=== PATIENT | female | born 1945 | race Caucasian/White ===

== ENCOUNTER 2016-11-28 10:28 | Day surgery (SDC) | payer MEDICARE, MEDICAID ==
[2016-11-28] VITALS (7 sets, daily range): BP systolic 98–127; BP diastolic 54–70; PULSE 65–70; RESP 14–18; O2SAT 96–99
[~2016-11-28] VITALS: Ht 165.1 cm; Wt 43.7 kg
[~2016-11-28 10:28] MED LIST: CeFAZolin Inj 2 GM in IV Premix 1 EACH IV ONE; DICL100G8 TOPICAL; Lactated Ringer's 1,000 ML IV SCH; TRAM50TA2 PO; TRAZ150T72 PO; VENL150C98 PO
[2016-11-28] MEDS ORDERED: fentaNYL-PF 50 mCg/mL 2 mL Inj ONE (10:29)
[2016-11-28] MEDS ORDERED: Propofol 10,000 mCg/mL 20 mL Inj ONE (10:29)
[2016-11-28] MEDS ORDERED: Ondansetron 2 mg/mL 2 mL Inj ONE (10:29)
[2016-11-28] MEDS ORDERED: CeFAZolin Inj 2 gm / 50mL D5W IV ONE (10:33)
[2016-11-28] MEDS ORDERED: Lactated Ringer's 1,000 ML IV ONE (11:19)
[2016-11-28] MEDS ORDERED: Lidocaine 2%-Epi 1:100,000 20 mL Inj INFILTRATE ONE (12:24)
[2016-11-28] MEDS ORDERED: Lidocaine MPF 2%-Epi 1:200,000 10 mL Inj INFILTRATE ONE (12:24)
[2016-11-28] MEDS ORDERED: Lactated Ringer's 1,000 ML IV SCH (12:27)
[2016-11-28] MEDS ORDERED: Lactated Ringer's 500 ML IV PRN (12:27)
--- NOTE | 2016-11-28 12:27 | PCM.HPANE ---
Patient Data Surgeon Admitting Provider: Attending Provider:Ca White DPM Primary Care Physician:Other,Physician Other Provider:Ryan Wu Anesthesia Reason for Visit Right Hallux Valgus/Severe Bunion Ht/WT & BMI Height (Feet): 5 Height (Inches): 5.00 Weight (Kilograms): 43.7 Body Mass Index 16.00 Allergies Coded Allergies: Sulfa (Sulfonamide Antibiotics) (Verified Allergy, Unknown, 11/27/16) Past Anesthesia History Anesthesia History: Denies:: Anesthesia Reactions, Fam Anesthesia Reaction Diabetes History Hx Diabetes?: No MRSA MRSA: No Medications Hypertension Medication: No Home Meds Incl Beta Yoly: No Reported Medications Diclofenac Gel (Voltaren Gel)100 Gm Tube1 Applic TOPICAL QID PRN For Pain #1 TUBE 11/27/16 Venlafaxine ER 150 Mg [id number] Mg PO BID Ref 0 11/27/16 Trazodone 150 Mg [id number] Mg PO HS Ref 0 11/27/16 Tramadol 50 Mg [id number] Mg PO Q6H PRN For Pain Ref 0 NTE 6 tabs/24 11/27/16 History History of ENT Problems?: Yes HEENT History: Positive for:: Hearing Problem (unable to use aides) Sinus Problem Denies:: Glaucoma Teeth Condition: Broken Teeth Hx of Heart Problems?: No Cardiovascular History: Denies:: AICD Abdominal Aortic Aneurism Atrial Fibrillation Chest Pain Congestive Heart Failure Edema Heart Murmur Hypertension Irregular Heartbeat Pacemaker Hx of Respiratory Problem?: No Respiratory History: Denies:: Asthma COPD Emphysema Oxygen Administration Pneumonia Tuberculosis Use of C-PAP Machine Use of Inhalers / NEBS Hx Neurologic Problems?: Yes Neurological History: Positive for:: TIA (15-20 years ago- unsure if really mini stroke) Denies:: CVA Dizziness Headaches Multiple Sclerosis Parkinson's Disease Seizures Hx of GI Problems?: Yes Gastrointestinal History: Positive for:: Gastroesphageal Reflux Heartburn Other GI Pertinent History: hx of irritable bowel syndrome Hx of Problems?: Yes Genitourinary History: Positive for:: Urinary Tract Infection (hx of kidney infection last august- overnight in hospital) Denies:: Kidney Stones Female Hx: Denies:: Currently (tubal ligation ) Problems with Breasts? Skin History: Denies:: History Skin Disorders? Pressure Ulcers Hx Musculoskeletal Problems?: Yes Musculoskeletal History: Positive for:: Back Injury Degenerative Joint Musculoskeletal Trauma (right bunion current admission problem) Osteoarthritis Rheumatoid Arthritis Denies:: Fibromyalgia Joint Replacement Systemic Lupus Hx of Psycho/Social Problems?: Yes Psycho Social History: Positive for:: Anxiety Hx Depression Hx Surgeries?: Yes (tubal ligation, dental) Hx Any Other Health Problems?: Yes Other History: Denies:: Cancer Thyroid Disease History Blood Transfusions: Positive for:: Accept Blood Products? Denies:: Blood Transfuse Reaction Blood Transfusions Hx Diabetes: No Hx Alcohol Use: NoHx Substance Use: Yes (medical marijuana- cream, edible, and inhalant: some form daily)Have You Smoked inLast 12 mo: No Stop/Bang S-Snoring: Do You Snore Loudly: No T-Tired: feel tired, fatigued: No O-Obsered: Observed not breath: No P-Blood Pressure: treated: No B- Body Mass Index > 35 kg/m2: No A- Age over 50: Yes N- Neck Large Circumference: No G- Gender Male: No APURVA Total Score: 1 Risk Assessment Category Category 1A: Patient has history of documented sleep apnea, and HAS NOT received any narcotic, sedative or anesthesia administration during this stay. Category 1B: Patient has history of documented sleep apnea, and HAS received any narcotic , sedative or anesthesia administration during this stay Category 2: Patient has SUSPECTED Obstructive Sleep Apnea, and HAS received any narcotic , sedative or anesthesia administration during this stay. Category 3: Patient has SUSPECTED Obstructive Sleep Apnea and HAS NOT received narcotic, sedative or anesthesia administration during this stay. Category 4: Outpatient in Procedural Areas with known sleep apnea or who screen positive for High Risk via the STOP/BANG questionnaire. Exam Exam Vital Signs Vital Signs Date Time Temp Pulse Resp B/P Pulse Ox O2 Delivery O2 Flow Rate FiO2 11/28/16 11:14 36.6 70 14 98/68 96 Room Air General Appearance: Alert HEENT/AIRWAY: MP 2 Lungs: Clear to Auscultation Heart: Exam Unremarkable Meds/Labs/Diagnostics Admission Meds Current Medications Lactated Ringer's (Lr) 1,000 ml @ ud STK-MED ONCE IV Last administered on 11/28t 11:19; Start 11/28/16 at 11:19; Stop 11/28/16 at 11:20; Status DC Plan Impression Patient chart reviewed, patient interviewed and anesthestic plan with risks, benefits, and alternatives discussed, and informed consent obtained. NPO Status: confirmed before mn ASA Physical Status: ASA2 Mod Systemic Disease Anesthetic Support Modalities: Hemodynamic Monitoring Anesthetic Plan: GA Bene/Risks/Altern/Consents: Yes HP Complete Prior to Induction: Yes Iglesia Jaeger MD Nov 28, 2016 12:27
[2016-11-28] MEDS ORDERED: EPHEDrine Sulfate 50 mg/mL Inj IVPUSH PRN (12:30)
[2016-11-28] MEDS ORDERED: Phenylephrine 10,000 mCg/mL Inj IVPUSH PRN (12:30)
[2016-11-28] MEDS ORDERED: HYDROmorphone 1 mg/mL Inj IVPUSH PRN (12:30)
[2016-11-28] MEDS ORDERED: Dexamethasone 4 mg/mL Inj IVPUSH PRN (12:30)
[2016-11-28] MEDS ORDERED: MetoCLOpramide 5 mg/mL 2 mL Inj IVPUSH PRN (12:30)
[2016-11-28] MEDS ORDERED: Ondansetron 2 mg/mL 2 mL Inj IVPUSH PRN (12:30)
[2016-11-28] MEDS ORDERED: fentaNYL-PF 50 mCg/mL 2 mL Inj IVPUSH PRN (12:30)
[2016-11-28] MEDS ORDERED: oxyCODONE-Acetamin 5-325 mg Tablet PO PRN (13:05)
--- NOTE | 2016-11-28 13:08 | PCM.ANEP1 ---
Post Anesthesia Phase 1 PACU Phase 1 Assessment Vital Signs Vital Signs Date Time Temp Pulse Resp B/P Pulse Ox O2 Delivery O2 Flow Rate FiO2 11/28/16 11:14 36.6 70 14 98/68 96 Room Air Level of Alertness: Awake, talking IBARRA's with Equal Strength: Yes Pain: No Nausea or Vomiting: No Airway Device: Nasal Airway Oxygen Delivery: Nasal Cannula Lungs: Clear to Auscultation, Normal Air Movement Dermatome Level: Full Sensation Early,Iglesia Moe MD Nov 28, 2016 13:08
--- NOTE | 2016-11-28 13:15 | PCM.PODPO ---
Podiatry Operative Report Date of Service: Nov 28, 2016 Date of Service Nov 28, 2016 Pre Operative Diagnosis Right hallux valgus deformity, severe Post Operative Diagnosis Right hallux valgus deformity, severe Procedure Right bunionectomy with distal first metatarsal osteotomy and adductor hallucis tendon transfer to the metatarsal head Surgeon Surgeon: Ca White DPM Assistants: None Indication for Procedure Large bunion deformity with subluxation of the great toe. Pain with shoe gear. Pain with activity. Findings 30% loss of articular cartilage due to angulation of subluxing hallux. Well aligned osteotomy and tendon transfer postoperatively. Details of Procedure The patient was identified in the preoperative holding area and brought back to the operating room and placed on the operating table in supine position. The timeout protocol was completed in the patient's site and side of surgery confirmed. IV sedation was initiated, the right foot anesthetized in a Mendez block. The right foot was prepped and draped in the usual aseptic manner. A linear incision was made on the dorsomedial aspect of the first metatarsophalangeal joint, deepened bluntly, lateral retraction was done in the first webspace, where the adductor hallucis tendon was found, and resected from its insertion, and tagged for later transfer. The capsule was incised dorsomedially and reflected off of the first metatarsal head. The medial bunion eminence was resected. The cartilage was found to be damaged about 30%, most of which was resected with the eminence. No dorsal spurring was found. A guidewire was used to orient the metatarsal head osteotomy with a long dorsal arm, planning on moving the capital fragment laterally and plantarly. A bone saw was used to create a long arm [employer] osteotomy through the metatarsal head and neck. The capital fragment was translated laterally and plantarly. It was provisionally fixated with a K wire. 2.7 mm lag screw was inserted across the osteotomy dorsal distal to proximal plantar. A 2.7 mm neutralizing screw was then applied across the osteotomy without over drilling. Irrigation was performed and medial overhanging portion of bone resected. The abductor transfer was completed and incorporated into the tightening of the tibial sesamoid suspensory ligament. Capsule was repaired with Vicryl 3-0. The skin was closed with 4-0 Prolene suture. The foot was cleansed and dressed with Tristan silk, 4 x 4 gauze, Kerlix, and Coban, lightly compressed. The patient was weaned off of IV sedation and taken to the day surgery with vital signs stable and vascular status to the right foot intact. Grafts, Implants: Implants-See Implant Record Complications There were no periprocedural complications identified. Condition Stable Anesthetic Administered: MAC Drains: None Catheters: None Output, Estimated Blood Loss: 10 (ml) Blood Admin during surgery: No Surgical Cast or Splint: Post-op Boot Surgical Specimen Removed: No Specimen sent to Pathology: No Post Operative Plan Weightbearing as tolerated in a postoperative shoe only. The patient's postoperative dressing is to stay in place for 1 week. At that time she is to return to clinic for dressing change and possible suture removal. If she wishes to change her own dressing, she needs to place a folded 4 x 4 gauze in the first webspace, wrap with gauze and Coban. She is not to get the foot wet in the shower until we see her in the clinic, even if it is 2 weeks out. Ca White DPM Nov 28, 2016 13:15
--- NOTE | 2016-11-30 07:01 | PCM.ANEP2 ---
Post Anesthesia Evaluation ASA/CMS Post Anesthesia VS in Patient's Normal Range?: Yes Resp Stable; Airway Patent?: Yes CV Function & Hydration Stable: Yes Mental Status Recovered?: Yes Pain control Satisfactory?: Yes N/V Control Satisfactory?: Yes Early,Iglesia Moe MD Nov 30, 2016 07:00
== END 2016-11-28 23:59 | disposition home or self-care (01) ==
LOC: SAS 10:28
PROVIDERS: ATTEND Podiatrist
DX: M20.11 Hallux valgus (acquired), right foot (principal); L84 Corns and callosities; M06.9 Rheumatoid arthritis, unspecified; D64.9 Anemia, unspecified; K58.9 Irritable bowel syndrome, unspecified; K21.9 Gastro-esophageal reflux disease without esophagitis; F41.9 Anxiety disorder, unspecified; F32.9 Major depressive disorder, single episode, unspecified; F12.90 Cannabis use, unspecified, uncomplicated; Z87.891 Personal history of nicotine dependence; Z86.73 Personal history of transient ischemic attack (TIA), and cerebral infarction without residual deficits
CPT/HCPCS: 28296; C1713; J0690; J2405; J3010; J7120